=== PATIENT | female | born 1955 | race Caucasian/White ===

== ENCOUNTER 2019-05-23 10:52 | Day surgery (SDC) | payer BC ==
--- NOTE | 2019-05-23 07:17 | History and Physical - [facility] ---
CHIEF COMPLAINT/HISTORY OF CHIEF COMPLAINT: This patient with a history of intractable lumbar radiculopathy had a spinal opioid infusion system implanted 12-13 years previous. Over that period of time everything had been working well, within the last 3-4 weeks the patient started having abnormalities with respect to function and pain. Computer assessment showed a cycling of this spinal infusion pump off and on periodically. Over the last two weeks the pump completely failed and has taken despite the emergency identification of the problem her insurance company two weeks to authorize. She is here for replacement of the pump, we will evaluate the catheter patency and replace if necessary. PAST MEDICAL HISTORY: Noncontributory. PAST SURGICAL HISTORY: Breast surgery, tubal ligation, nephrectomy, and pump implant. MEDICATIONS ON ADMISSION: List to be provided. ALLERGIES: None. FAMILY/PSYCHOSOCIAL HISTORY: Social history - Smoking and caffeine. Family history - Hypertension and cancer. SYSTEMS REVIEW: The patient is appropriate in no acute distress. The remainder of the systems review is noncontributory. PHYSICAL EXAMINATION: Height is 5'1", weight is 120. No vital signs. HEENT: Within normal limits. LUNGS: Clear. HEART: Rapid and regular. ABDOMEN: Nontender. MUSCULOSKELETAL: Examination of the musculoskeletal system shows the incision for the spinal catheter approximating L3-L4. The pump pouch in the right posterior gluteal margin is identified, and the incisions are intact. The pain pattern is low back. There is a bilateral right greater than left lower extremity component. Mild weakness by motor and sensory evaluation to the right leg. Ambulation - No assistive device utilized. NEUROLOGIC: Cranial nerves are intact. IMPRESSION: 1. LUMBAR RADICULOPATHY, ICD-10 CODE M54.16 AND M54.17. 2. IMPLANTED SPINAL CATHETER INFUSION DEVICE HYDROMORPHONE, NONFUNCTIONAL. PLAN: The patient is here for replacement of the pump and reinitiation of the infusion therapy. An overnight stay will be evaluated. Our starting dose will approximate a normal range. We will evaluate and determine. The disks, side effects and complications have been reviewed and discussed. JOB NUMBER: [id number] MTDD
[~2019-05-23 10:52] MED LIST: ACETAMINOPHEN 1,000 MG/100 ML BTL IVPB ONE; BUPIVACAINE HCL IV ONE; FAMOTIDINE 20MG TABLET PO ONE; HYDROMORPHONE HCL IV ONE; HYDROMORPHONE PF 2MG/ML AMP 0.008 MG in 0.9 % SODIUM CHLORIDE 10ML VIA 0.996 ML IV ONE; MECLIZINE 25 MG TABLET PO ONE; METOCLOPRAMIDE 10 MG TABLET PO ONE; VANCOMYCIN 1GM/200ML PREMIX 1 GM/200 ML PIGGYBACK IVPB ONE; [UNRECOGNIZED DRUG - OTHER] IV ONE
[2019-05-23] MEDS ORDERED: HYDROMORPHONE HCL 2 MG/ML VIAL IV ONE (10:53)
[2019-05-23] MEDS ORDERED: FENTANYL PF 100MCG/2ML VIAL IV ONE (10:53)
[2019-05-23] MEDS ORDERED: MIDAZOLAM HCL 2MG/2ML VIAL IV ONE (10:53)
[2019-05-23] MEDS ORDERED: PROPOFOL 10 MG/ML VIAL IV ONE (10:53)
[2019-05-23] MEDS ORDERED: LIDOCAINE 2% MDV (20MG/ML) 20ML VIAL IV ONE (10:53)
[2019-05-23 11:12] LABS: BLEEDING TIME 5.5 MINUTES (1.5-7.0)
[2019-05-23 11:24] LABS: PROTHROMBIN TIME (PATIENT) 10.2 SECONDS (9.5-12.1)
[2019-05-23] MEDS ORDERED: RINGERS SOLUTION,LACTATED 1,000 ML IV ONE ×2 (11:45→14:00)
[2019-05-23] MEDS ORDERED: LIDOCAINE 1% W/EPI 1:200,000 MPF 30ML SQ ONE (13:25)
[2019-05-23] MEDS ORDERED: BUPIVACAINE 0.5% W/EPI MPF 30 ML VIAL SQ ONE (13:25)
[2019-05-23] MEDS ORDERED: CEFAZOLIN 1G VIAL IR ONE (13:26)
[2019-05-23] MEDS ORDERED: HYDROMORPHONE HCL 2 MG/ML VIAL IVP PRN (15:11)
[2019-05-23] MEDS ORDERED: METOCLOPRAMIDE HCL 10 MG/2 ML VIAL IVP PRN (16:00)
[2019-05-23] MEDS ORDERED: HYDROCODONE/APAP 7.5/325MG TABLET PO PRN ×2 (16:00)
[2019-05-23] MEDS ORDERED: DIPHENHYDRAMINE HCL 50 MG/ML VIAL IVP PRN ×2 (16:00)
[2019-05-23] MEDS ORDERED: DIPHENHYDRAMINE HCL 25 MG CAPSULE PO PRN ×2 (16:00)
[2019-05-23] MEDS ORDERED: METOCLOPRAMIDE 10 MG TABLET PO PRN (16:00)
[2019-05-23] MEDS ORDERED: ACETAMINOPHEN 325 MG TAB PO PRN (16:00)
[2019-05-23] MEDS ORDERED: HYDROMORPHONE HCL 2 MG/ML VIAL IM PRN ×2 (16:00)
[2019-05-23] MEDS ORDERED: SENNOSIDES/DOCUSATE SODIUM UD CAPSULE PO PRN ×2 (16:00)
[2019-05-23] MEDS ORDERED: TEMAZEPAM 15 MG CAPSULE PO PRN (16:00)
[2019-05-23] MEDS ORDERED: AL HYDROX/MAG HYDROX 30ML UD PO PRN (16:00)
[2019-05-23] MEDS: OXYCODONE/APAP 10MG-325MG TABLET PO PRN ×2 (16:40→20:26)
[2019-05-23] MEDS ORDERED: HYDROCHLOROTHIAZIDE 25 MG TABLET PO SCH (22:00)
[2019-05-24] MEDS ORDERED: VANCOMYCIN 1GM/200ML PREMIX 1 GM/200 ML PIGGYBACK IVPB ONE
[2019-05-24] MEDS: OXYCODONE/APAP 10MG-325MG TABLET PO PRN ×3 (00:02→09:27)
[2019-05-24] MEDS ORDERED: ANORO (UMECLIDINIUM & VILANTEROL) 62.5MCG/25MCG INH IH SCH (10:00)
--- NOTE | 2019-05-24 13:31 | Operative Note - [facility] ---
DATE OF SURGERY: 05/23/2019 PREOPERATIVE DIAGNOSIS: 1. INTRACTABLE LUMBAR RADICULOPATHY, ICD-10 CODE M54.16 AND M54.17. 2. NONFUNCTIONAL SPINAL INFUSION DEVICE PUMP AND CATHETER. OPERATION: 1. FLUOROSCOPICALLY GUIDED INCISION, SUBCUTANEOUS DISSECTION, AND REMOVAL OF PROGRAMMABLE PUMP AT RIGHT POSTERIOR GLUTEAL MARGIN. 2. INCISION, SUBCUTANEOUS DISSECTION, AND TESTING OF SPINAL CATHETER RESULTING IN NONFUNCTIONAL CATHETER. 3. INCISION, SUBCUTANEOUS DISSECTION, AND REMOVAL OF IMPLANTED SPINAL CATHETER. 4. FLUOROSCOPICALLY GUIDED ACCESS TO THE SPINAL SPACE AT L4-L5, PLACEMENT OF THIN WALLED SPINAL CATHETER T11-T12. 5. DIAGNOSTIC MYELOGRAPHY WITH RADIOLOGICAL SUPERVISION AND INTERPRETATION. 6. BOLUS OF HYDROMORPHONE INTO THE SPINAL SPACE 0.004 MG. 7. ANCHORING OF SPINAL CATHETER IN THE SUPRASPINOUS FASCIA WITH MEDTRONIC ANCHOR AND NONABSORBABLE SUTURE. 8. REVISION RIGHT POSTERIOR GLUTEAL MARGIN POUCH FOR PUMP IDENTIFIED MEDTRONIC 20 ML PROGRAMMABLE. 9. PLACEMENT OF PUMP ONTO FIELD, PREFILLED HYDROMORPHONE 2 MG PER ML. 10. TUNNELLING OF SPINAL CATHETER INTO POSTERIOR POUCH RIGHT POSTERIOR GLUTEAL MARGIN, INTERFACE PUMP WITH SECOND CATHETER COMPONENT BY WAY OF A CONNECTOR TO INTERFACE PUMP. 11. INTERFACE REVISED CATHETER TO PUMP, PLACEMENT OF PUMP INTO POUCH SECURING TO POSTERIOR FASCIA WITH NONABSORBABLE SUTURE AT THREE POINTS PUMP EYELETS. 12. PLACEMENT OF CURVED 24-GAUGE MARQUEZ NEEDLE ACCESS PORT IN PUMP, ASPIRATION AND CLEARING CATHETER OF OPIOID CSF MIXTURE. CONFIRMING PATENCY OF CATHETER. 13. CLOSURE OF BOTH INCISIONS USING 2-0 VICRYL, CHELSEY FOR SKIN. 14. EPIDURAL BLOOD PATCH AT L5-S1 20 ML AUTOLOGOUS BLOOD STERILE TECHNIQUE LEFT ANTECUBITAL. 15. CLOSURE OF BOTH INCISIONS USING 2-0 VICRYL AND CHELSEY FOR SKIN WITH OP- SITE DRESSING PLACED. PROGRAMMING OF PUMP TO DELIVER BY CONTINUOUS INFUSION OF HYDROMORPHONE AND 1 MG PER DAY. SURGEON: Wali Arreola D.O. ANESTHESIA: Local sedation. ANESTHESIA PROVIDER: Emmanuel Mei CRNA INDICATION: This patient presents with history of intractable lumbar radiculopathy managed by a spinal opioid infusion device greater than ten years old. Over the last three to four weeks pump malfunctioning was noted. Over the last two weeks complete failure of the device and withdrawal on patient's symptoms. With some difficulty the insurance authorized removal and replacement of the system because of non-functionality. It was uncertain as to whether or not the catheter would still be functional after this period of time, it would be tested. PROCEDURE: intravenous line, vital sign monitoring, IV sedation by Anesthesia. The patient was positioned prone. Sterile prep. Sterile technique. The pump pouch at the right posterior gluteal margin was entered, a local incision was made, and subcutaneous dissection was conducted to the pouch. The pouch was opened, the pump exteriorized and from the indwelling catheter. The indwelling catheter was then freed from the scar tissue, cut or resected and then a 25-gauge needle was inserted into the end of the catheter with attempts to aspirate CSF to check patency. This was unsuccessful suggesting the catheter had been obstructed and the non-functionality of the system. At the point the midline incision for the previous catheter was infiltrated, incision made and subcutaneous dissection was conducted to the catheter and its anchor, the anchor and suture were removed, the catheter was removed and a pursestring string suture was placed to stop CSF leak. A spinal needle was then inserted under imaging into the L4-L5 interspace with CSF flow. A thin walled spinal catheter was advanced and positioned at T11-T12. A pursestring suture was placed to stop CSF leak when the needle was removed. An anchoring device was then placed securing the catheter to the supraspinous fascia with nonabsorbable suture. The patency of the catheter still noted CSF leak noted. Diagnostic myelography was performed and flow characteristics were appropriate for this space. With appropriate flow characteristics noted the catheter position confirmed bolus Hydromorphone into the spinal space, 0.004 mg given. The catheter was clamped to stop CSF leak still noted. The pump pouch on the right was then revised and modified to accommodate the pump 20 ml programmable. A new 20 ml programmable Medtronic pump was placed onto the field, prefilled Hydromorphone 2 mg per ml. A tunnelling tool was used to carry the spinal catheter into the pump pouch and then the catheter was resected and interfaced with the second catheter component by way of a connector. This revised catheter was then interfaced to the new pump. Antibiotic irrigation, Bovie for hemostasis. The pump was placed into the pouch, secured to the posterior fascia nonabsorbable suture at three points using the pump eyelets. With the pump in the pouch a curved 24-gauge Marquez needle was inserted into the access port and 1 ml of catheter content was aspirated confirming patency and functionality of the catheter. With the pump in place and the catheter in place, both incisions were then closed using 2-0 Vicryl and chelsey for the skin. At L5-S1 one level below the drill puncture the skin was infiltrated, an 18-gauge Tuohy needle was placed, positioned into the epidural space. A blood patch was then performed using 20 ml autologous blood drawn, sterile technique from the antecubital, the needle was removed, the site was reinforced, a dressing was placed over both incisions in the form of Op-Site. The pump was programmed to deliver continuous infusion of 1 mg per day, she had previously been at 8.5 mg a day. She was then transported to the Recovery Room stable. There were no side effects to this procedure or sedation. She will be monitored overnight and then discharged in the morning if stable. DISCHARGE INSTRUCTIONS: 1. The sites are to remain clean and dry. No showering or bathing in any way that would disrupt the dressings. If it happens contact the clinic. 2. Standard medications will be resumed including the antibiotic Levaquin 500 mg a day for fourteen days. 3. The office is to contact the patient in 12-24 hours to set up a time in 7-10 days for us to evaluate the sites. Until then she is to keep her activities down. We will remove the chelsey at that evaluation. All other instructions were provided. The potential side effects including respiratory depression, nausea, vomiting, constipation, urinary retention or rash have all been discussed and reviewed. She will be discharged in the morning. JOB NUMBER: [id number] [facility]
--- NOTE | 2019-05-24 18:25 | RADIOLOGY REPORT ---
EXAMINATION: AP Spine Single View EXAM DATE: 05/23/2019 5:31 PM TECHNIQUE: AP INDICATION: S/P PAIN PUMP REVISION COMPARISON: None ENCOUNTER: Initial FINDINGS: AP view thoracolumbar spine. Mild dextroscoliosis. Diffuse spondylitic change. Pain pump projects ove r right pelvis. Multiple keshawn over the midline. Lung bases clear. IMPRESSION: Mild dextroscoliosis with diffuse spondylitic change Dictated by: Bishop Taylor MD on 05/24/2019 6:18 PM. .
== END 2019-05-24 10:15 | disposition home or self-care (01) ==
LOC: SUR 10:52 → MEDSURG 15:54 → SUR 05-24 10:15
PROVIDERS: ATTEND Pain Medicine Interventional Pain Medicine
DX: M54.16 Radiculopathy, lumbar region (principal); M54.17 Radiculopathy, lumbosacral region; I10 Essential (primary) hypertension; J44.9 Chronic obstructive pulmonary disease, unspecified; Z90.5 Acquired absence of kidney; Z87.891 Personal history of nicotine dependence
CPT/HCPCS: 62350; 62360; 62273; 00630; 62368; 85610; 85002; 72020; C1755; Q9967; C1772; J3010; J1170 ×2; J3370; J0690; J7120